=== PATIENT | female | born 1985 | race Caucasian/White ===

== ENCOUNTER → 2018-09-30 | Outpatient (CLI) | payer BC, OTHER ==
[2018-09-30 12:58] VITALS: BMI 39.4
== END ==
LOC: DBWHC3 10:17
PROVIDERS: ATTEND Nurse Practitioner Adult Health
DX: E66.9 Obesity, unspecified (principal); Z68.39 Body mass index [BMI] 39.0-39.9, adult
CPT/HCPCS: 97802

== ENCOUNTER → 2020-05-31 | Outpatient (CLI) | payer BC ==
[2020-05-31 16:39] VITALS: BP 114/82; PULSE 84; RESP 18; TEMP 98.6; BMI 39.3
--- NOTE | 2020-05-31 16:50 | P.HPBAR ---
Bariatric H&P - History & Physicial H&P Date: 05/31/20 History & Physicial: Visit/CC: initial visit Patient initial contact: Initial weight: Initial weight in pounds: Height: 5 ft 2 in Initial BMI: Last weight: Current weight: 97.522 kg Current weight in pounds: 215.00 Current BMI: 39.3 [place] body weight (based on NIH guidelines): 49.895 kg Excess body weight loss: The patient is a 34 year-old F who presents for Bariatric Assessment. DATE OF SERVICE: 05/31/2020 REASON FOR CONSULTATION: Initial bariatric evaluation HISTORY OF PRESENT ILLNESS: Yasmin Mclean is a 34-year-old female who comes with lifelong morbid obesity. She comes in looking into the sleeve gastrectomy. Her mother had the lap band. Both parents have troubles with their weight and obesity. Both of her parents have diabetes. She denies moderate gastroesophageal reflux disease. She denies family history of stomach or esophageal cancer. She already had the sleeve gastrectomy at the age of 24, 10 years ago. Her highest weight was 226 pounds. Her sleeve gastrectomy was done at [facility] where her last follow-up was 5 years. From surgery, her weight came down from 226 pounds to 160 pounds. She has re-gained almost all of her weight. "I was young and did my own thing." She is looking for additional surgery for weight loss. She presents to me for the first time in consultation. At height of 5 feet 2 inches, her ideal body weight is 135 pounds. Her highest weigh was 226 pounds, BMI 41.4. She comes in 215 pounds from her lowest weight of 160 pounds. She has gained 55 pounds in 5 years. Lifetime weight loss of 11 pounds. Lifetime excess percent weight loss reduced from 73% to 13%. Her body mass index is 39.3. She is 80 pounds overweight. PAST MEDICAL HISTORY: 1. Morbid obesity due to excess calories 2. Body mass index of initial 3. Diabetes type 2, non-insulin dependent PAST SURGICAL HISTORY: 1. Sleeve gastrectomy, 2010 HOME MEDICATIONS: Home Medications Medication Instructions Recorded Confirmed Etonogestrel/Ethinyl Estradiol 1 applic VAGINAL DIRECTED 05/30/20 05/31/20 [Nuvaring Vaginal Ring] Liraglutide [Saxenda] 1.8 ml SQ DAILY 05/30/20 05/31/20 Fluticasone Nasal [place] [Flonase 2 spr EA NOSTRIL DAILY PRN 05/31/20 05/31/20 Nasal [place]] valACYclovir [Valtrex] 1,000 mg PO DAILY PRN 05/31/20 05/31/20 ALLERGIES: Allergies Allergy/AdvReac Type Severity Reaction Status Date / Time No Known Allergies Allergy Verified 05/31/20 16:39 SOCIAL HISTORY: Past tobacco use. FAMILY HISTORY: No family history of ulcerative colitis disease or Crohn's disease. Family history of morbid obesity. No lupus in the family. No reports of stomach or esophageal cancer. REVIEW OF ORGAN SYSTEMS: CONSTITUTIONAL: At height of 5 feet 2 inches, her ideal body weight is 135 pounds. Her highest weigh was 226 pounds, BMI 41.4. Lowest weight of 160 pounds following sleeve gastrectomy. HEENT: Denies any active troubles with vision or hearing. ENDOCRINE: Has diabetes. No hypothyroidism. CARDIOVASCULAR: Past reports of palpitations or heart attacks or chest pain. RESPIRATORY: Denies daytime somnolence. Denies asthma. GASTROINTESTINAL: Denies any bright red blood per rectum. No diarrhea. No constipation. MUSCULOSKELETAL: Has lower back pain and joint pain. NEURO: No headaches. No seizure disorders. PSYCH: Denies depression. No suicidal ideation. RHEUMATOLOGIC: No lupus. No rheumatoid arthritis. HEMATOLOGIC: Denies any abnormal bleeding or bruising. No personal history of DVTs. SKIN: No rash. No skin cancer. PHYSICAL EXAM: VITAL SIGNS: Height 5 foot 2 inches, weight 215 pounds. BMI 39.3 Vital Signs Temp 98.6 F 05/31/20 16:36 Pulse 84 05/31/20 16:36 Resp 18 05/31/20 16:36 BP 114/82 05/31/20 16:36 Pulse Ox GENERAL: Well-developed in no acute distress. HEENT: No scleral icterus. Extraocular movements grossly intact. Hears conversational speech. No nasal drainage. NECK: Supple without lymphadenopathy. CHEST: Nonlabored respirations with equal bilateral excursions. CARDIOVASCULAR: Regular rate and regular rhythm. Distal 2+ pulses. ABDOMEN: Obese, soft, nontender, nondistended. MUSCULOSKELETAL: No clubbing, cyanosis. NEURO: No focal or lateralizing signs. Cranial nerves 2 through 12 grossly within normal limits. PSYCH: Appropriate affect. Alert and oriented to person, place and time. SKIN: Good skin turgor. Well perfused. ASSESSMENT: 1. Morbid obesity due to excess calories 2. Body mass index of initial 3. Diabetes type 2, non-insulin dependent 4. Family history of morbid obesity 5. Non-compliance to bariatric weight loss. 6. Weight gain following weight loss surgery. 7. Status post sleeve gastrectomy. PLAN: 1. She has weight gain following sleeve gastrectomy from non-compliance. However, sleeve gastrectomy complications including structural abnormalities will be evaluated. 2. She is looking into possible re-sleeve. Will need additional assessment with esophogram and upper endoscopy to sleeve pouch volume. 3. Recommend bariatric metabolic panel to evaluate for micro- including macronutrient deficiencies. 4. Dietary surveillance and counseling was reviewed. Increased protein intake over 65 grams daily advised. 5. Recommend bariatric dietitian with food diary journal. 6. Recommend medical risk assessment. 7. Psych assessment per insurance guidelines. 8. Recommend upper endoscopy. 9. Recommend 12-lead EKG. 10. Recommend esophagram 11. She is elevated risk for complications with prior gastric surgery. Thank you for this consultation. Past Medical History Past Medical History: No Reported History History of Any Multi-Drug Resistant Organisms: None Reported Past Surgical History: Bariatric Surgery Additional Past Surgical History / Comment(s): sleeve gastrectomy 2010 Past Anesthesia/Blood Transfusion Reactions: No Reported Reaction Past Psychological History: No Psychological Hx Reported Smoking Status: Former smoker Past Alcohol Use History: Occasional Additional Past Alcohol Use History / Comment(s): quit smoking 2008 Past Drug Use History: None Reported Surgical - Exam Vital Signs Temp Pulse Resp BP 98.6 F 84 18 114/82 05/31/20 16:36 05/31/20 16:36 05/31/20 16:36 05/31/20 16:36 Bariatric Checklist Checklist: Plan: Checklist: EGD: 1. Hiatal hernia: 2. H. Pylori: HgbA1c: Vitamin D: Smoking: Primary care physician referral: SONYA Patel Psychiatry clearance: Cardiology clearance: Sleep study: Diet journal: VTE risk score: VTE risk level: Rehab needs at discharge:
== END | disposition home or self-care (01) ==
LOC: BARWHC3 15:58
PROVIDERS: ATTEND Surgery Plastic and Reconstructive Surgery
DX: E66.01 Morbid (severe) obesity due to excess calories (principal); E11.9 Type 2 diabetes mellitus without complications; Z83.49 Family history of other endocrine, nutritional and metabolic diseases; Z99.89 Dependence on other enabling machines and devices; Z68.39 Body mass index [BMI] 39.0-39.9, adult
CPT/HCPCS: 99203

== ENCOUNTER → 2020-06-05 | Outpatient (CLI) | payer BC ==
[2020-06-05 09:52] LABS: HCT 44.6 % (34.0-46.0); HGB 14.7 gm/dL (11.4-16.0); MCH 30.1 pg (25.0-35.0); MCHC 33.1 g/dL (31.0-37.0); Mean Platelet Volume 7.1; Platelet Count 244 k/uL (150-450); RDW 12.2 % (11.5-15.5); WBC 8.3 k/uL (3.8-10.6)
[2020-06-05 17:44] LABS: % Iron Saturation 33.9 (12.00-45.00); African American GFR (CKD) 112.3 (60.0-200.0); Albumin 4.3 g/dL (3.80-4.90); Albumin/Globulin Ratio 1.95 (1.60-3.17); Anion Gap 14.3 mmol/L (4.00-12.00); BUN/Creat Ratio 17.5 Ratio (12.00-20.00); Carbon Dioxide 17.7 mmol/L (21.6-31.8); Chol/HDL Ratio 2.53; Globulin 2.2 g/dL (1.6-3.3); LDL Cholesterol,Calculated 83.2 mg/dL (0.0-131.0); Magnesium 1.9 mg/dL (1.5-2.4); Non-African American GFR(CKD) 96.9 (60.0-200.0); Phosphorus 3.9 mg/dL (2.4-5.1); Potassium 4.1 mmol/L (3.5-5.5); Total Bilirubin 0.5 mg/dL (0.3-1.2); Total Protein 6.5 g/dL (6.2-8.2); VLDL Calculation 23.8 mg/dL (5.00-40.00)
[2020-06-05 17:59] LABS: Hemoglobin A1C 4.9 % (4.0-6.0)
[2020-06-05 18:22] LABS: Folate, Serum 13.2 ng/mL
[2020-06-05 18:55] LABS: INR 0.96 (0.90-1.11); Partial Thromboplastin Time 27.9 sec (23.5-31.0); Prothrombin Time 10.4 sec (9.9-11.9)
[2020-06-06 13:08] LABS: Zinc, Serum 58 ug/dL (60-130)
[2020-06-07 07:57] LABS: Vitamin A 65 ug/dL (38-106)
[2020-06-07 08:04] LABS: Vit B1(Thiamine) 64 ug/L (38-122)
[2020-06-08 22:54] LABS: Selenium 120 mcg/L (63-160)
== END | disposition home or self-care (01) ==
LOC: LABWHC1 08:49
PROVIDERS: ATTEND Surgery Plastic and Reconstructive Surgery
DX: E66.01 Morbid (severe) obesity due to excess calories (principal); E89.1 Postprocedural hypoinsulinemia; D50.8 Other iron deficiency anemias; E44.0 Moderate protein-calorie malnutrition; E55.9 Vitamin D deficiency, unspecified; K74.1 Hepatic sclerosis; N19 Unspecified kidney failure; K50.90 Crohn's disease, unspecified, without complications
CPT/HCPCS: 36415; 80053; 80061; 82306; 82525; 82607; 82728; 82746; 83036; 83540; 83550; 83735; 83970; 84100; 84134; 84255; 84425; 84443; 84590; 84630; 85027; 85610; 85730; 93005

== ENCOUNTER → 2020-06-19 | Outpatient (CLI) | payer BC ==
--- NOTE | 2020-06-19 11:37 | FL ---
EXAMINATION TYPE: FL barium swallow DATE OF EXAM: 06/19/2020 CLINICAL INDICATION: 34-year-old female R13.10 dysphagia, R10.13 epigastric pain. Additional history of sleeve gastrectomy 10 years ago. COMPARISON: None Total Fluoroscopy Time: 2 minutes 21 seconds Total images: 47 FINDINGS: The swallowing mechanism is normal and hypopharyngeal anatomy is preserved. The cervical and thoracic portions have a normal course and caliber and normal motility. The mucosa i s normal and no persistent filling defect is encountered. No hiatal hernia is present. No gastroesop hageal reflux is identified. The proximal portion of the stomach is tortuous and appears to demonstrate a counterclockwise corkscr ew turn with a mild narrowing of the mid to distal aspect of the corkscrew. There is also only mild n arrowing of the mid portion of the stomach. IMPRESSION: 1. No hiatal hernia. Unremarkable appearance to the esophagus. 2. Tortuous proximal portion of the stomach (either variant anatomy or in part postsurgical change) d emonstrating a counterclockwise corkscrew turn with only very mild narrowing of the mid to distal asp ect of the corkscrew. Additional very mild narrowing of the midportion of the stomach. Images are marco ilable for review.
== END | disposition home or self-care (01) ==
LOC: RADUSWWP 09:10
PROVIDERS: ATTEND Surgery Plastic and Reconstructive Surgery
DX: R13.10 Dysphagia, unspecified (principal)
CPT/HCPCS: 74220

== ENCOUNTER 2020-06-28 09:53 | Day surgery (SDC) | payer BC ==
[2020-06-26 10:28] VITALS: BMI 38.9
--- NOTE | 2020-06-28 08:37 | P.GSHP ---
History of Present Illness H&P Date: 06/28/20 CHIEF COMPLAINT: GERD HISTORY OF PRESENT ILLNESS: The patient is a 34-year-old female who presents reports gastroesophageal reflux disease. Upper endoscopy was offered for further evaluation and management. PAST MEDICAL HISTORY: Please see list. PAST SURGICAL HISTORY: Please see list. MEDICATIONS: Please see list. ALLERGIES: Please see list. SOCIAL HISTORY: No illicit drug use FAMILY HISTORY: No reports of Crohn disease or ulcerative colitis. REVIEW OF ORGAN SYSTEMS: CONSTITUTIONAL: No reports of fevers or chills. GI: Denies any blood in stools or constipation. PHYSICAL EXAM: VITAL SIGNS: Stable GENERAL: Well-developed and pleasant in no acute distress. HEENT: No scleral icterus. Extraocular movements grossly intact. Moist buccal mucosa. NECK: Supple without lymphadenopathy. CHEST: Unlabored respirations. Equal bilateral excursions. CARDIOVASCULAR: Regular rate and rhythm. Distal 2+ pulses. ABDOMEN: Soft, nondistended. MUSCULOSKELETAL: No clubbing, cyanosis, or edema. ASSESSMENT: 1. Gastroesophageal reflux disease PLAN: 1. Recommend proceeding with an upper endoscopy Past Medical History Past Medical History: No Reported History History of Any Multi-Drug Resistant Organisms: None Reported Past Surgical History: Bariatric Surgery Additional Past Surgical History / Comment(s): sleeve gastrectomy 2010 Past Anesthesia/Blood Transfusion Reactions: No Reported Reaction Past Psychological History: No Psychological Hx Reported Smoking Status: Former smoker Past Alcohol Use History: Occasional Additional Past Alcohol Use History / Comment(s): quit smoking 2007 Past Drug Use History: None Reported - Past Family History Mother Family Medical History: No Reported History Medications and Allergies Home Medications Medication Instructions Recorded Confirmed Type Etonogestrel/Ethinyl Estradiol 1 applic VAGINAL DIRECTED 05/30/20 06/26/20 History [Nuvaring Vaginal Ring] Liraglutide [Saxenda] 1.8 ml SQ DAILY 05/30/20 06/26/20 History Fluticasone Nasal [place] [Flonase 2 spr EA NOSTRIL DAILY PRN 05/31/20 06/26/20 History Nasal [place]] valACYclovir [Valtrex] 1,000 mg PO DAILY PRN 05/31/20 06/26/20 History Allergies Allergy/AdvReac Type Severity Reaction Status Date / Time No Known Allergies Allergy Verified 06/26/20 10:25
[~2020-06-28 09:53] MED LIST: LACTATED RINGERS 1,000 ML IV SCH; LIDOCAINE 1% (10MG/ML) FOR IV START INTRADERMA PRN
[2020-06-28 10:54] VITALS: RESP 16; TEMP 98.1
[2020-06-28] MEDS ORDERED: PROPOFOL 10 MG/ML 20 ML VIAL IV ONE (11:24)
[2020-06-28 12:39] VITALS: BP 117/72; PULSE 82
--- NOTE | 2020-06-28 17:57 | P.PCN ---
Date of Procedure: 06/28/20 Description of Procedure: PREOPERATIVE DIAGNOSIS: Status post sleeve gastrectomy. Gastroesophageal reflux disease. Epigastric abdominal pain. POSTOPERATIVE DIAGNOSIS: Status post sleeve gastrectomy. Gastroesophageal reflux disease. Epigastric abdominal pain. Chronic superficial gastritis. Complications sleeve gastrectomy OPERATION: Esophagogastroduodenoscopy with cold forceps biopsies along the antrum. SURGEON: Vero Lo MD ANESTHESIA: MAC. INDICATIONS: The patient is a 34-year-old female who presents with a history of sleeve gastrectomy with complications. She is over 5 years out from her bariatric procedure. Benefits and risks of the procedure were described. Informed consent was obtained. DESCRIPTION: The patient was brought into the endoscopy suite and laid in the left lateral decubitus position. An Olympus gastroscope was passed along the posterior oropharynx down to the distal esophagus where the squamocolumnar junction was unremarkable . The stomach was entered where retained gastric cardia including stenosis at the angulus incisura and tortuous sleeve was identified. The tunnel of the sleeve was meandering. The sleeve reservoir was moderately large allowing easy retroflexion of the scope to view the lower esophageal valve. Chronic gastritis albeit mild was found along the antrum with cold biopsies obtained. The first through third portion of the duodenum was examined and unremarkable. The scope again had easily retroflexed along the antrum. The stomach was desufflated. The patient tolerated the procedure well. FINDINGS: No acute ulceration found along her sleeve. Severe corkscrewing of sleeve gastrectomy with retained gastric cardia Squamocolumnar junction at 37 cm from the incisors. Moderate large gastric reservoir with prior history of sleeve gastrectomy allowing easy retroflexion of the gastroscope to view the lower esophageal valve. No LA grade A erosive esophagitis. No active duodenitis. Chronic gastritis. RECOMMENDATIONS: Upper endoscopy as needed. May benefit from revision or conversion of her bariatric procedure Plan - Discharge Summary Discharge Rx Participant: No New Discharge Prescriptions: Continue Etonogestrel/Ethinyl Estradiol [Nuvaring Vaginal Ring] 1 applic VAGINAL DIRECTED Liraglutide [Saxenda] 1.8 ml SQ DAILY Fluticasone Nasal [place] [Flonase Nasal [place]] 2 spr EA NOSTRIL DAILY PRN PRN Reason: Allergy Symptoms valACYclovir [Valtrex] 1,000 mg PO DAILY PRN PRN Reason: Cold Sores Discharge Medication List Etonogestrel/Ethinyl [place]str[place] [Nuvaring Vaginal Ring] 1 applic VAGINAL DIRECTED 05/30/20 [History] Liraglutide [Saxenda] 1.8 ml SQ DAILY 05/30/20 [History] Fluticasone Nasal [place] [Flonase Nasal [place]] 2 spr EA NOSTRIL DAILY PRN 05/31/20 [History] valACYclovir [Valtrex] 1,000 mg PO DAILY PRN 05/31/20 [History] [facility] [facility] [place] [place] [facility] [place] [facility] (Please call and make your appointment, noone answered, voicemail.) Patient Instructions/Handouts: *Surgery [facility] - (Anesthesia) Endoscopy Discharge Instructions, Gastritis (DC), Upper Endoscopy (DC) Discharge Disposition: HOME SELF-CARE
== END 2020-06-28 12:45 | disposition home or self-care (01) ==
LOC: ORWHC2ENDO 09:53
PROVIDERS: ATTEND Surgery Plastic and Reconstructive Surgery
DX: K29.30 Chronic superficial gastritis without bleeding (principal); K95.89 Other complications of other bariatric procedure; K21.9 Gastro-esophageal reflux disease without esophagitis; Z98.84 Bariatric surgery status; Z79.3 Long term (current) use of hormonal contraceptives; Z79.899 Other long term (current) drug therapy; Z87.891 Personal history of nicotine dependence
CPT/HCPCS: 81025; 88305; 43239; J2704

== ENCOUNTER → 2020-07-12 | Outpatient (CLI) | payer BC ==
[2020-07-12 16:41] VITALS: BP 145/79; PULSE 77; RESP 18; TEMP 98.1; BMI 39.3
--- NOTE | 2020-07-12 17:13 | P.PN ---
Subjective Progress Note Date: 07/12/20 She has mechanical complication with sleeve. Needs revision. Correct Zinc. Objective - Vital Signs Vital signs: Vital Signs Temp 98.1 F 07/12/20 16:39 Pulse 77 07/12/20 16:39 Resp 18 07/12/20 16:39 BP 145/79 07/12/20 16:39 Pulse Ox Intake & Output 07/11/20 07/12/20 07/12/20 18:59 06:59 18:59 Weight 97.522 kg
== END ==
LOC: BARWHC3 16:26
PROVIDERS: ATTEND Surgery Plastic and Reconstructive Surgery
DX: E66.01 Morbid (severe) obesity due to excess calories (principal); Z68.39 Body mass index [BMI] 39.0-39.9, adult; Z98.84 Bariatric surgery status; Z87.891 Personal history of nicotine dependence
CPT/HCPCS: 99211

== ENCOUNTER 2023-09-09 13:14 | Inpatient (IN) | payer BC ==
[2023-09-09] MEDS ORDERED: CARBOPROST TROMETHAMINE 250 MCG/ML 1 ML AMP IM PRN (13:39)
[2023-09-09] MEDS ORDERED: miSOPROStoL 200 MCG TAB PO PRN (13:39)
[2023-09-09] MEDS ORDERED: METHYLERGONOVINE 0.2 MG/ML 1 ML AMP IM PRN (13:39)
[2023-09-09] MEDS ORDERED: TERBUTALINE 1 MG/ML VIAL SQ PRN (13:39)
[2023-09-09] MEDS ORDERED: TRANEXAMIC 1,000 MG/100ML-NACL 1,000 MG in EMPTY BAG 1 BAG IV PRN (13:39)
[2023-09-09] MEDS ORDERED: OXYTOCIN 10 UNIT/ML 1 ML VIAL IM PRN (13:39)
[2023-09-09] MEDS: LACTATED RINGERS 1,000 ML IV SCH (13:52)
[2023-09-09 14:03] LABS: Basophils # (A) 0.1 k/uL (0-0.2); Basophils % (A) 1 %; Eosinophils # (A) 0.1 k/uL (0-0.7); Eosinophils % (A) 1 %; HCT 41.8 % (34.0-46.0); HGB 13.8 gm/dL (11.4-16.0); Lymphocytes # (A) 2.3 k/uL (1.0-4.8); Lymphocytes % (A) 13 %; MCH 29.6 pg (25.0-35.0); MCHC 33.1 g/dL (31.0-37.0); MCV 89.3 fL (80.0-100.0); Mean Platelet Volume 8.4; Monocytes # (A) 0.5 k/uL (0-1.0); Monocytes % (A) 3 %; Neutrophils # (A) 15.4 k/uL (1.3-7.7); Neutrophils % (A) 83 %; Platelet Count 198 k/uL (150-450); RBC 4.68 m/uL (3.80-5.40); RDW 13.5 % (11.5-15.5); WBC 18.6 k/uL (3.8-10.6)
[2023-09-09 14:10] LABS: Appearance,Urine Cloudy (Clear); Bilirubin,Urine Negative (Negative); Blood,Urine Large (Negative); Color,Urine Yellow; Glucose,Urine (UA) Negative (Negative); Ketones,Urine Trace (Negative); Leukocyte Esterase,Urine Moderate (Negative); Mucus,Urine Occasional /hpf; Nitrite,Urine Negative (Negative); Protein,Urine 1+ (Negative); RBC,Urine >182 /hpf (0-5); Specific Gravity,Urine 1.019 (1.001-1.035); Squamous Epithelial Cell,Urine 4 /hpf (0-4); Urobilinogen,Urine <2.0 mg/dL (<2.0); WBC,Urine 22 /hpf (0-5)
[2023-09-09 14:14] LABS: INR 0.8 (<1.2); Partial Thromboplastin Time 22.2 sec (22.0-30.0); Prothrombin Time 9.4 sec (10.0-12.5)
[2023-09-09 14:33] LABS: ALT 21 U/L (4-34); AST 35 U/L (14-36); African American GFR (CKD) >90 (>60 ml/min/1.73 sqM); Blood Urea Nitrogen 12 mg/dL (7-17); LDH 300 U/L (120-246); Non-African American GFR(CKD) >90 (>60 ml/min/1.73 sqM); Uric Acid 5.2 mg/dL (3.7-7.4)
[2023-09-09 14:35] LABS: Creatinine,Urine Random 117.8 mg/dL; Protein/Creatinine Ratio,Urine 0.56
[2023-09-09] MEDS: LABETALOL 5 MG/ML VIAL MDV IVP STA (14:35)
--- NOTE | 2023-09-09 14:42 | P.HPOB ---
History of Present Illness H&P Date: 09/09/23 Chief Complaint: Contractions Ms. Mclean is a 37 year old at 39 weeks and 3 days with EDC of 5/4 based on 14 week US who presents to labor and delivery with painful, regular uterine contractions and is found to be in labor. Her has been complicated by the finding of a velamentous cord insertion, for which she has had non-stress tests for surveillance since 32 weeks that have all been reassuring. The fetus measured in the 69%ile for weight at 32 weeks on ultrasound. work-up: Blood type AB positive, antibody screen negative, rubella im mune, VDRL non-reactive, HBsAg negative, HIV negative, HCV Ab non-reactive, gonorrhea negative, chlamydia negative, 1 hour GTT within normal limits, GBS negative. s/p TDap 07/01. Past Medical History Past Medical History: No Reported History History of Any Multi-Drug Resistant Organisms: None Reported Past Surgical History: Bariatric Surgery Additional Past Surgical History / Comment(s): sleeve gastrectomy 2010 Past Anesthesia/Blood Transfusion Reactions: No Reported Reaction Smoking Status: Never smoker Medications and Allergies Home Medications Medication Instructions Recorded Confirmed Type Aspirin [Adult Low Dose Aspirin EC] 81 mg PO DAILY 09/09/23 09/09/23 History Vit No.179/Iron/Folic 1 each PO DAILY 09/09/23 09/09/23 History [ Tablet] Allergies Allergy/AdvReac Type Severity Reaction Status Date / Time No Known Allergies Allergy Verified 09/09/23 13:22 Exam Intake and Output 09/08/23 09/09/23 09/09/23 22:59 06:59 14:59 Other: Weight 117.027 kg Focused physical exam is performed. This is a healthy-appearing in no apparent distress. Breathing is non-labored. Abdomen is gravid and non-tender. Cervical exam is 5/100/-1 per OB RN. Extremities are non-tender and non- edematous. heart tones are Category I and tocometer is graphing contractions every 2-4 minutes. Results Result Diagrams: 09/09/23 13:48 09/09/23 13:48 Abnormal Lab Results - Last 24 Hours (Table) 09/09/23 09/09/23 09/09/23 Range/Units 13:39 13:48 13:48 WBC (3.8-10.6) k/uL Neutrophils # (1.3-7.7) k/uL PT 9.4 L (10.0-12.5) sec Lactate Dehydrogenase 300 H (120-246) U/L Urine Appearance Cloudy H (Clear) Urine Protein 1+ H (Negative) Urine Ketones Trace H (Negative) Urine Blood Large H (Negative) Ur Leukocyte Esterase Moderate H (Negative) Urine RBC >182 H (0-5) /hpf Urine WBC 22 H (0-5) /hpf Urine Mucus Occasional H (None) /hpf 09/09/23 Range/Units 13:48 WBC 18.6 H (3.8-10.6) k/uL Neutrophils # 15.4 H (1.3-7.7) k/uL PT (10.0-12.5) sec Lactate Dehydrogenase (120-246) U/L Urine Appearance (Clear) Urine Protein (Negative) Urine Ketones (Negative) Urine Blood (Negative) Ur Leukocyte Esterase (Negative) Urine RBC (0-5) /hpf Urine WBC (0-5) /hpf Urine Mucus (None) /hpf Assessment and Plan Assessment: 37 year old at 39 weeks and 3 days presenting in labor Plan: 1. Labor. Admit, NPO, expectant management, epidural prn. Continuous EFM and tocometer, close monitoring of patient. 2. Severe-range blood pressures on admission. s/p IV Labetalol 200mg x1. PIH labs pending. Will start Mag Sulfate if second antihypertensive push is needed. Anticipate vaginal delivery
[2023-09-09] MEDS ORDERED: fentaNYL (PF) 50 MCG/ML 5 ML AMP ONE (14:47)
[2023-09-09] MEDS ORDERED: ROPIVACAINE 5 MG/ML 30 ML VIAL ONE (14:47)
[2023-09-09] MEDS ORDERED: SODIUM CHLORIDE 0.9% 250 ML BAG ONE (14:47)
[2023-09-09] MEDS: OXYTOCIN 30 UNITS/500 ML NS 30 UNIT in SALINE 1 500ML.BAG IV SCH (17:27)
[2023-09-10] MEDS: LIDOCAINE 0.5% (PF) 5 MG/ML (50 ML SDV) SQ PRN (00:57)
[2023-09-10] MEDS ORDERED: HYDROcodone/APAP 7.5-325MG 1 EACH TAB PO PRN (01:19)
[2023-09-10] MEDS ORDERED: diphenhydrAMINE 50 MG CAP PO PRN (01:19)
[2023-09-10] MEDS ORDERED: HYDROcodone/APAP 5-325MG 1 EACH TAB PO PRN (01:19)
[2023-09-10] MEDS ORDERED: diphenhydrAMINE 25 MG CAP PO PRN (01:19)
[2023-09-10] MEDS ORDERED: LANOLIN CREAM 1 GM TUBE TOPICAL PRN (01:19)
[2023-09-10] MEDS ORDERED: ZOLPIDEM 5 MG TAB PO PRN (01:19)
[2023-09-10] MEDS ORDERED: diphenhydrAMINE 50 MG/ML 1 ML VIAL IVP PRN ×2 (01:19)
[2023-09-10] MEDS ORDERED: HYDROCORTISONE 2.5% RECTAL CREAM 30 GM TUBE RECTAL PRN (01:19)
[2023-09-10] MEDS ORDERED: BENZOCAINE/MENTHOL SPRAY 1 GM/SPRAY AEROSOL TOPICAL PRN (01:19)
[2023-09-10] MEDS ORDERED: SIMETHICONE 80 MG CHEWABLE PO PRN (01:19)
--- NOTE | 2023-09-10 01:22 | P.PROBDLV ---
Vaginal Delivery Note - . Vaginal Delivery Note: Patient is a 37-year-old 1 para 0 admitted at 39-3/7 weeks as established by good dating parameters. She is admitted in early active labor with initial elevated blood pressures but negative laboratory workup constituting a diagnosis of preeclampsia without severe features. She did require treatment of blood pressures with labetalol at admission and has not required further treatment. On admission, all signs are reassuring with a category 1 heart rate tracing. She is admitted for active management of labor and underwent artificial rupture of membranes. She made progress to the active phase and had an epidural catheter placed for analgesia. She continued to make steady progress through the active phase of labor and ultimately progressed to complete or after she pushed over the course of just over an hour to a normal spontaneous vaginal delivery of a viable 7 pound 6 ounce baby boy with Apgars of 8 at 1 minute and 9 at 5 minutes delivered in the direct occiput anterior position. The placenta was delivered spontaneously, intact, and vanessa sly normal with a grossly normal, marginally inserted and velamentously inserted three-vessel cord. There was a second-degree midline perineal laceration which was repaired in standard fashion using 3-0 chromic catgut without difficulty. She did have some initial atony following delivery which resolved with clearance of the clots from the lower uterine segment. Estimated blood loss for the case was approximately 450 mL. There were no complications. All sponge, instrument, and needle counts were correct. Both mother and are resting comfortably in recovery though the infant was taken to the special care nursery secondary to some retractions and mild difficulty with breathing.
[2023-09-10] MEDS ORDERED: OXYTOCIN 30 UNITS/500 ML NS 30 UNIT in SALINE 1 500ML.BAG IV SCH (01:30)
[2023-09-10] MEDS: IBUPROFEN 600 MG TAB PO PRN (01:48)
[2023-09-10] MEDS: ACETAMINOPHEN TAB 325 MG TAB PO PRN (05:14)
[2023-09-10] MEDS: SENNOSIDES-DOCUSATE SODIUM 1 EACH TAB PO SCH (08:11)
[2023-09-10] MEDS: LABETALOL 200 MG TAB PO SCH (08:12)
[2023-09-11 07:57] LABS: Basophils # (A) 0.1 k/uL (0-0.2); Basophils % (A) 0 %; Eosinophils # (A) 0.1 k/uL (0-0.7); Eosinophils % (A) 1 %; HCT 28.7 % (34.0-46.0); Lymphocytes # (A) 4.9 k/uL (1.0-4.8); Lymphocytes % (A) 30 %; MCH 29.2 pg (25.0-35.0); MCV 91.3 fL (80.0-100.0); Mean Platelet Volume 7.8; Monocytes # (A) 0.6 k/uL (0-1.0); Monocytes % (A) 4 %; Neutrophils # (A) 10.6 k/uL (1.3-7.7); Neutrophils % (A) 64 %; Platelet Count 159 k/uL (150-450); RBC 3.15 m/uL (3.80-5.40); RDW 13.8 % (11.5-15.5); WBC 16.5 k/uL (3.8-10.6)
[2023-09-11 07:58] LABS: HGB 9.2 gm/dL (11.4-16.0)
--- NOTE | 2023-09-11 08:32 | P.PNOBGVD ---
Subjective - Subjective Principal diagnosis: s/p normal spontaneous vaginal delivery Interval history: The patient is doing well this morning and had no acute events overnight. She has no complaints this morning. She reports minimal lochia, passing flatus, voiding without difficulty, ambulating, and eating/drinking without nausea or vomiting. She is her infant without difficulty. She denies headache, visual disturbances, and RUQ pain. She denies chest pain, shortness of breathing, fevers, or chills overnight. She denies pain or swelling in the legs. Patient reports: Reports appetite normal, Reports voiding normally, Reports pain well controlled, Reports ambulating normally : doing well, nursing well, other (in nursery for IV abx) Objective - Latest Vital Signs Latest vital signs: Vital Signs Temp Pulse Resp BP Pulse Ox 09/11/23 03:09 80 151/86 99 09/11/23 00:00 15 09/10/23 23:38 97.9 F 86 15 101/69 97 09/10/23 20:00 82 16 112/68 09/10/23 16:00 98.5 F 89 16 106/69 09/10/23 15:43 16 Intake and Output 09/10/23 09/11/23 09/11/23 22:59 06:59 14:59 Intake Total 960 Balance 960 Intake: Oral 960 Other: # Voids 2 2 - Exam Extremities: Present: normal Abdomen: Present: normal appearance, soft Uterus: Present: normal, firm - Labs Labs: Abnormal Lab Results - Last 24 Hours (Table) 09/11/23 Range/Units 07:15 WBC 16.5 H (3.8-10.6) k/uL RBC 3.15 L (3.80-5.40) m/uL Hgb 9.2 L D (11.4-16.0) gm/dL Hct 28.7 L (34.0-46.0) % Neutrophils # 10.6 H (1.3-7.7) k/uL Lymphocytes # 4.9 H (1.0-4.8) k/uL Assessment and Plan Assessment: 37 year old now PPD#1 s/p complicated by new-onset pre-eclampsia without severe features Plan: 1. . Patient meeting all milestones appropriately. 2. Pre-eclampsia without severe features. Now on Labetalol 200mg BID. Most recent BP 150s/80s. Normotensive overnight. Continue to monitor. 3. Viable male . In nursery receiving IV antibiotics. Will need circumcision prior to discharge. Dispo: Anticipate discharge home tomorrow. Continue to monitor BPs.
[2023-09-12 08:58] VITALS: BP 131/76; PULSE 89; RESP 16; TEMP 98
--- NOTE | 2023-09-12 11:48 | P.DS ---
Providers Date of admission: 09/09/23 13:30 Expected date of discharge: 09/12/23 Attending physician: Maryse Reyna MD Primary care physician: Stated None Hospital Course: Ms. Mclean is a 37 year old now PPD#2 s/p normal spontaneous vaginal delivery with pitocin augmentation complicated by new-onset pre-eclampsia without severe features. The patient is doing well this morning and had no acute events overnight. Blood pressures have been normotensive on Labetalol 200mg BID. The patient denies headache, visual disturbances, and RUQ pain. She has no complaints this morning. She reports minimal lochia, passing flatus, voiding without difficulty, ambulating, and eating/drinking without nausea or vomiting. Infant doing well in the nursery, s/p circumcision. She denies chest pain, shortness of breathing, fevers, or chills overnight. She denies pain or swelling in the legs. restrictions are reviewed with the patient including pelvic rest for 6 weeks. The patient is encouraged to call the office if she experiences any heavy bleeding, foul-smelling discharge, breast complaints, or any if she has any other concerns. She will follow up in the office with in 1 weeks for blood pressure check. She will go home with a prescription for Labetaol as well as Motrin and Tylenol as needed for pain. All questions are answered. Assessment: 37 year old PPD#2 s/p complicated by preE without severe features Patient Condition at Discharge: Good Plan - Discharge Summary Discharge Rx Participant: No New Discharge Prescriptions: New Ibuprofen [Motrin] 600 mg PO Q6HR PRN #30 tab PRN Reason: Mild Pain (Scale 1 To 3) Labetalol [Trandate] 200 mg PO BID #60 tablet Acetaminophen Tab [Tylenol] 650 mg PO Q6H PRN #30 tab PRN Reason: Mild Pain (Scale 1 To 3) No Action Vit No.179/Iron/Folic [ Tablet] 1 each PO DAILY Aspirin [Adult Low Dose Aspirin EC] 81 mg PO DAILY Discharge Medication List Aspirin [Adult Low Dose Aspirin EC] 81 mg PO DAILY 09/09/23 [History] Vit No.179/Iron/Folic [ Tablet] 1 each PO DAILY 09/09/23 [History] Acetaminophen Tab [Tylenol] 650 mg PO Q6H PRN #30 tab 09/12/23 [Rx] Ibuprofen [Motrin] 600 mg PO Q6HR PRN #30 tab 09/12/23 [Rx] Labetalol [Trandate] 200 mg PO BID #60 tablet 09/12/23 [Rx] Follow up Appointment(s)/Referral(s): Maryse Reyna MD [STAFF PHYSICIAN] - 1 Week (blood pressure check, call to schedule) Activity/Diet/Wound Care/Special Instructions: Instructions 1. Do not begin any exercise program for 3 weeks. 2. Do not resume sexual relations for 6 weeks or longer if uncomfortable. 3. You may take tub baths or showers at any time. 4. You may use tampons if desired after 6 weeks. 5. Keep any areas repaired with stitches clean and dry. 6. If you are not nursing, wear a good fitting, supportive bra during the day and limit fluid intake for at least 1 week to prevent breast engorgement. 7. Call the office, , within the next week to make appointment for your 6 week checkup if it has not already been made. 8. Report any of the following occurrences to the doctor promptly: a. Heavy, excessive bleeding b. Chills, fever c. Burning or frequency of urination d. Pain or redness and breasts if nursing e. Increasing pain or swelling of vulva (stitches). In addition to the above instructions, the following additional should be followed: 1. No heavy lifting or straining (exercising) until after 6 week checkup. 2. Keep abdominal incision clean and dry: You may wear a dressing if more comfortable. 3. Make office appointment for 2 weeks after delivery date.
== END 2023-09-12 12:26 | disposition home or self-care (01) | DRG 807 ==
LOC: FBPOP 13:14 → 4FBP 13:30
PROVIDERS: ADMIT Obstetrics & Gynecology; ATTEND Obstetrics & Gynecology
PROC: 10E0XZZ Delivery of Products of Conception, External Approach (ICD-10-PCS; principal; 2023-09-10)
PROC: 0KQM0ZZ Repair Perineum Muscle, Open Approach (ICD-10-PCS; 2023-09-10)
PROC: 10907ZC Drainage of Amniotic Fluid, Therapeutic from Products of Conception, Via Natural or Artificial Opening (ICD-10-PCS; 2023-09-10)
DX: O14.04 Mild to moderate pre-eclampsia, complicating childbirth (principal); Z37.0 Single live birth; O70.1 Second degree perineal laceration during delivery; O99.844 Bariatric surgery status complicating childbirth; O43.123 Velamentous insertion of umbilical cord, third trimester; Z3A.39 39 weeks gestation of pregnancy; Z79.82 Long term (current) use of aspirin
CPT/HCPCS: 59025; 81001; 82565; 82570; 83615; 84156; 84450; 84460; 84520; 84550; 85025; 85384; 85610; 85730; 86850; 86900; 86901; 88307; 99213

== ENCOUNTER 2023-09-14 22:05 | Emergency (ER) | payer BC ==
[2023-09-14 22:39] VITALS: RESP 18
--- NOTE | 2023-09-14 23:13 | ED ---
Headache HPI - General Chief Complaint: Headache Stated Complaint: Headache, Dehydration Time Seen by Provider: 09/14/23 23:12 Source: RN notes reviewed, old records reviewed Mode of arrival: ambulatory Limitations: no limitations - History of Present Illness Initial Comments: This is a 37-year-old female to the ER presenting with headache today no trauma no fevers. No neurological complaints. Patient has 2 days of vaginal delivery with headache. Patient to get epidural injection. Medical history takes no medications first delivery first baby vaginal delivery full-term MD Complaint: headache, other (Post epidural headache) -: days(s) Onset Description: gradual Location: diffuse Severity: moderate Severity scale (1-10): 6 Quality: throbbing, pulsatile, sharp Consistency: constant Improves With: nothing Worsens With: none Associated Symptoms: nausea Other Symptoms: other (0) Treatments Prior to Arrival: none - Related Data Home Medications Medication Instructions Recorded Confirmed Aspirin [Adult Low Dose Aspirin EC] 81 mg PO DAILY 09/09/23 09/09/23 Vit No.179/Iron/Folic 1 each PO DAILY 09/09/23 09/09/23 [ Tablet] Previous Rx's Medication Instructions Recorded Acetaminophen Tab [Tylenol] 650 mg PO Q6H PRN #30 tab 09/12/23 Ibuprofen [Motrin] 600 mg PO Q6HR PRN #30 tab 09/12/23 Labetalol [Trandate] 200 mg PO BID #60 tablet 09/12/23 Allergies Allergy/AdvReac Type Severity Reaction Status Date / Time No Known Allergies Allergy Verified 09/14/23 22:15 Review of Systems ROS Statement: Those systems with pertinent positive or pertinent negative responses have been documented in the HPI. ROS Other: All systems not noted in ROS Statement are negative. Past Medical History Past Medical History: Hypertension History of Any Multi-Drug Resistant Organisms: None Reported Past Surgical History: Bariatric Surgery Additional Past Surgical History / Comment(s): sleeve gastrectomy 2010 Past Anesthesia/Blood Transfusion Reactions: No Reported Reaction Past Psychological History: No Psychological Hx Reported Smoking Status: Never smoker Past Alcohol Use History: Occasional Past Drug Use History: None Reported General Exam Limitations: no limitations General appearance: alert, in no apparent distress Head exam: Present: atraumatic, normocephalic, normal inspection Eye exam: Present: normal appearance, PERRL, EOMI. Absent: scleral icterus, conjunctival injection, periorbital swelling ENT exam: Present: normal exam, mucous membranes moist Neck exam: Present: normal inspection. Absent: tenderness, meningismus, lymphadenopathy Respiratory exam: Present: normal lung sounds bilaterally. Absent: respiratory distress, wheezes, rales, rhonchi, stridor Cardiovascular Exam: Present: regular rate, normal rhythm, normal heart sounds. Absent: systolic murmur, diastolic murmur, rubs, gallop, clicks GI/Abdominal exam: Present: soft, normal bowel sounds. Absent: distended, tenderness, guarding, rebound, rigid Extremities exam: Present: normal inspection, full ROM, normal capillary refill. Absent: tenderness, pedal edema, joint swelling, calf tenderness Back exam: Present: normal inspection Neurological exam: Present: alert, oriented X3, CN II-XII intact Psychiatric exam: Present: normal affect, normal mood Skin exam: Present: warm, dry, intact, normal color. Absent: rash Course Vital Signs 09/14/23 09/15/23 09/15/23 22:14 03:00 03:16 Temperature 98.3 F 97.9 F Pulse Rate 72 71 88 Respiratory 18 18 18 Rate Blood Pressure 155/88 147/93 144/82 O2 Sat by Pulse 98 99 97 Oximetry - Reevaluation(s) Reevaluation #1: 09/14/23 23:34 Records reviewed Reevaluation #2: 09/14/23 23:34 Patient symptoms are improved mildly Reevaluation #3: 09/14/23 23:34 Patient informed of results questions answered Reevaluation #4: Was pt. sent in by a medical professional or institution (, PA, MANAGER ROOM, urgent care, hospital, or fpc...) When possible be specific @ -no Did you speak to anyone other than the patient for history (EMS, parent, family, police, friend...)? What history was obtained from this source @ -no Did you review nursing and triage notes (agree or disagree)? Why? @ -agree Are old charts reviewed (outside hosp., previous admission, EMS record, old EKG, old radiological studies, urgent care reports/EKG's, fpc records)? Report findings @ -yes Differential Diagnosis (chest pain, altered mental status, abdominal pain women, abdominal pain men, vaginal bleeding, weakness, fever, dyspnea, syncope, headache, dizziness, GI bleed, back pain, seizure, CVA, palpatations, mental health, musculoskeletal)? @ -prior EKG interpreted by me (3pts min.). @ -no X-rays interpreted by me (1pt min.). @ -no CT interpreted by me (1pt min.). @ -no U/S interpreted by me (1pt. min.). @ -no What testing was considered but not performed or refused? (CT, X-rays, U/S, labs)? Why? @ -none What meds were considered but not given or refused? Why? @ -none Did you discuss the management of the patient with other professionals (professionals i.e. DrSanto, PA, MANAGER ROOM, lab, RT, psych nurse, social media content manager, adult daycare coordinator, teacher, attendance officer, rn case management)? Give summary @ -no Was smoking cessation discussed for >3mins.? @ -no Was critical care preformed (if so, how long)? @ -no Were there social determinants of health that impacted care today? How? (Homelessness, low income, unemployed, alcoholism, drug addiction, transportation, low edu. Level, literacy, decrease access to med. care, long term, rehab)? @ -none Was there de-escalation of care discussed even if they declined (Discuss DNR or withdrawal of care, Hospice)? DNR status @ -no What co-morbidities impacted this encounter? (DM, HTN, Smoking, COPD, CAD, Cancer, CVA, ARF, Chemo, Hep., AIDS, mental health diagnosis, sleep apnea, mo rbid obesity)? @ -none Was patient admitted / discharged? Hospital course, mention meds given and r oute, prescriptions, significant lab abnormalities, going to OR and other pertinent info. @ - 37 female to ER for evaluation, patient presents today for evaluation regards to headache spinal headache resolved here in the ER, patient feels well and can be discharged home Discharge Undiagnosed new problem with uncertain prognosis? @ -no Drug Therapy requiring intensive monitoring for toxicity (Heparin, Nitro, Insulin, Cardizem)? @ -no Were any procedures done? @ -no Diagnosis/symptom? @ -Spinal headache Acute, or Chronic, or Acute on Chronic? @ -Acute Uncomplicated (without systemic symptoms) or Complicated (systemic symptoms)? @ -Complicated Side effects of treatment? @ -no Exacerbation, Progression, or Severe Exacerbation? @ -exacerbation Poses a threat to life or bodily function? How? (Chest pain, [place], [place], pneumonia, PE, COPD, DKA, ARF, appy, cholecystitis, CVA, Diverticulitis, Homicidal, Suicidal, threat to staff... and all critical care pts) @ -yes severe headache Reevaluation #5: Differential Headache: Migraine, tension, cluster, carbon monoxide, central venous thrombosis, pension karma temporal arteritis, acute closure glaucoma, intercranial hemorrhage, mastoiditis, sinusitis, head injury, this is not meant to be an all-inclusive list. Medical Decision Making - Medical Decision Making 37 female to ER for evaluation, patient presents today for evaluation regards to headache spinal headache resolved here in the ER, patient feels well and can be discharged home - Lab Data Result diagrams: 09/15/23 01:42 09/15/23 01:42 Lab Results 09/15/23 09/15/23 09/15/23 Range/Units 01:42 01:42 01:42 WBC 9.9 (3.8-10.6) k/uL RBC 3.20 L (3.80-5.40) m/uL Hgb 9.9 L (11.4-16.0) gm/dL Hct 28.4 L (34.0-46.0) % MCV 88.6 (80.0-100.0) fL MCH 30.8 (25.0-35.0) pg MCHC 34.8 (31.0-37.0) g/dL RDW 14.2 (11.5-15.5) % Plt Count 210 (150-450) k/uL MPV 7.8 Neutrophils % 63 % Lymphocytes % 28 % Monocytes % 4 % Eosinophils % 2 % Basophils % 0 % Neutrophils # 6.3 (1.3-7.7) k/uL Lymphocytes # 2.7 (1.0-4.8) k/uL Monocytes # 0.4 (0-1.0) k/uL Eosinophils # 0.2 (0-0.7) k/uL Basophils # 0.0 (0-0.2) k/uL PT 9.5 L (10.0-12.5) sec INR 0.8 (<1.2) APTT 22.3 (22.0-30.0) sec Sodium 137 (137-145) mmol/L Potassium 4.1 (3.5-5.1) mmol/L Chloride 110 H (98-107) mmol/L Carbon Dioxide 22 (22-30) mmol/L Anion Gap 5 mmol/L BUN 10 (7-17) mg/dL Creatinine 0.72 (0.52-1.04) mg/dL Est GFR (CKD-EPI)AfAm >90 (>60 ml/min/1.73 sqM) Est GFR (CKD-EPI)NonAf >90 (>60 ml/min/1.73 sqM) Glucose 89 (74-99) mg/dL Calcium 8.3 L (8.4-10.2) mg/dL Phosphorus 3.8 (2.5-4.5) mg/dL Magnesium 2.0 (1.6-2.3) mg/dL Total Bilirubin 0.3 (0.2-1.3) mg/dL AST 94 H (14-36) U/L ALT 188 H (4-34) U/L Alkaline Phosphatase 119 (38-126) U/L Total Protein 5.3 L (6.3-8.2) g/dL Albumin 2.8 L (3.5-5.0) g/dL Urine Color Urine Appearance (Clear) Urine pH (5.0-8.0) Ur Specific [place] (1.001-1.035) Urine Protein (Negative) Urine Glucose (UA) (Negative) Urine Ketones (Negative) Urine Blood (Negative) Urine Nitrite (Negative) Urine Bilirubin (Negative) Urine Urobilinogen (<2.0) mg/dL Ur Leukocyte Esterase (Negative) Urine RBC (0-5) /hpf Urine WBC (0-5) /hpf Ur Squamous Epith Cells (0-4) /hpf Amorphous Sediment (None) /hpf Urine Bacteria (None) /hpf Urine Mucus (None) /hpf 09/15/23 Range/Units 02:45 WBC (3.8-10.6) k/uL RBC (3.80-5.40) m/uL Hgb (11.4-16.0) gm/dL Hct (34.0-46.0) % MCV (80.0-100.0) fL MCH (25.0-35.0) pg MCHC (31.0-37.0) g/dL RDW (11.5-15.5) % Plt Count (150-450) k/uL MPV Neutrophils % % Lymphocytes % % Monocytes % % Eosinophils % % Basophils % % Neutrophils # (1.3-7.7) k/uL Lymphocytes # (1.0-4.8) k/uL Monocytes # (0-1.0) k/uL Eosinophils # (0-0.7) k/uL Basophils # (0-0.2) k/uL PT (10.0-12.5) sec INR (<1.2) APTT (22.0-30.0) sec Sodium (137-145) mmol/L Potassium (3.5-5.1) mmol/L Chloride (98-107) mmol/L Carbon Dioxide (22-30) mmol/L Anion Gap mmol/L BUN (7-17) mg/dL Creatinine (0.52-1.04) mg/dL Est GFR (CKD-EPI)AfAm (>60 ml/min/1.73 sqM) Est GFR (CKD-EPI)NonAf (>60 ml/min/1.73 sqM) Glucose (74-99) mg/dL Calcium (8.4-10.2) mg/dL Phosphorus (2.5-4.5) mg/dL Magnesium (1.6-2.3) mg/dL Total Bilirubin (0.2-1.3) mg/dL AST (14-36) U/L ALT (4-34) U/L Alkaline Phosphatase (38-126) U/L Total Protein (6.3-8.2) g/dL Albumin (3.5-5.0) g/dL Urine Color Colorless Urine Appearance Cloudy H (Clear) Urine pH 6.5 (5.0-8.0) Ur Specific [place] 1.016 (1.001-1.035) Urine Protein Trace H (Negative) Urine Glucose (UA) Negative (Negative) Urine Ketones 2+ H (Negative) Urine Blood Moderate H (Negative) Urine Nitrite Negative (Negative) Urine Bilirubin Negative (Negative) Urine Urobilinogen <2.0 (<2.0) mg/dL Ur Leukocyte Esterase Large H (Negative) Urine RBC 19 H (0-5) /hpf Urine WBC >182 H (0-5) /hpf Ur Squamous Epith Cells 7 H (0-4) /hpf Amorphous Sediment Rare H (None) /hpf Urine Bacteria Occasional H (None) /hpf Urine Mucus Occasional H (None) /hpf Disposition Clinical Impression: Headache, Spinal headache Disposition: HOME SELF-CARE Condition: Good Instructions (If sedation given, give patient instructions): Acute Headache (ED) Is patient prescribed a controlled substance at d/c from ED?: No Referrals: Bayron Harp MD [Primary Care Provider] - 1-2 days
[2023-09-14] MEDS: diphenhydrAMINE 50 MG/ML 1 ML VIAL IVP STA (23:53)
[2023-09-14] MEDS: KETOROLAC 15 MG/ML 1 ML VIAL IVP STA (23:54)
[2023-09-14] MEDS: PROCHLORPERAZINE INJ 10 MG/2 ML VIAL IVP STA (23:55)
[2023-09-14] MEDS: SODIUM CHLORIDE 0.9% 1,000 ML IV STA (23:58)
[2023-09-15] MEDS: HYDROmorphone 1 MG/ML 1 ML SYRINGE IVP STA (00:01)
[2023-09-15] MEDS: ACETAMINOPHEN IV (For NPO) 1,000 MG in EMPTY BAG 1 BAG IVPB STA (00:05)
[2023-09-15] MEDS: CAFFEINE-SODIUM BENZOATE 1,000 MG in SODIUM CHLORIDE 0.9% 1,000 ML IVPB ONE (00:49)
[2023-09-15 02:09] LABS: INR 0.8 (<1.2); Partial Thromboplastin Time 22.3 sec (22.0-30.0); Prothrombin Time 9.5 sec (10.0-12.5)
[2023-09-15 02:11] LABS: ALT 188 U/L (4-34); AST 94 U/L (14-36); African American GFR (CKD) >90 (>60 ml/min/1.73 sqM); Albumin 2.8 g/dL (3.5-5.0); Alkaline Phosphatase 119 U/L (38-126); Anion Gap 5 mmol/L; Blood Urea Nitrogen 10 mg/dL (7-17); Calcium 8.3 mg/dL (8.4-10.2); Carbon Dioxide 22 mmol/L (22-30); Chloride 110 mmol/L (98-107); Glucose 89 mg/dL (74-99); Non-African American GFR(CKD) >90 (>60 ml/min/1.73 sqM); Phosphorus 3.8 mg/dL (2.5-4.5); Potassium 4.1 mmol/L (3.5-5.1); Sodium 137 mmol/L (137-145); Total Bilirubin 0.3 mg/dL (0.2-1.3); Total Protein 5.3 g/dL (6.3-8.2)
[2023-09-15 02:13] LABS: Basophils % (A) 0 %; Eosinophils # (A) 0.2 k/uL (0-0.7); Eosinophils % (A) 2 %; HCT 28.4 % (34.0-46.0); HGB 9.9 gm/dL (11.4-16.0); Lymphocytes # (A) 2.7 k/uL (1.0-4.8); Lymphocytes % (A) 28 %; MCH 30.8 pg (25.0-35.0); MCHC 34.8 g/dL (31.0-37.0); MCV 88.6 fL (80.0-100.0); Mean Platelet Volume 7.8; Monocytes # (A) 0.4 k/uL (0-1.0); Monocytes % (A) 4 %; Neutrophils # (A) 6.3 k/uL (1.3-7.7); Neutrophils % (A) 63 %; Platelet Count 210 k/uL (150-450); RDW 14.2 % (11.5-15.5); WBC 9.9 k/uL (3.8-10.6)
[2023-09-15 03:13] LABS: Amorphous Sediment,Urine Rare /hpf; Appearance,Urine Cloudy (Clear); Bacteria,Urine Occasional /hpf; Bilirubin,Urine Negative (Negative); Blood,Urine Moderate (Negative); Color,Urine Colorless; Glucose,Urine (UA) Negative (Negative); Ketones,Urine 2+ (Negative); Leukocyte Esterase,Urine Large (Negative); Mucus,Urine Occasional /hpf; Nitrite,Urine Negative (Negative); PH, Urine 6.5 (5.0-8.0); Protein,Urine Trace (Negative); RBC,Urine 19 /hpf (0-5); Specific Gravity,Urine 1.016 (1.001-1.035); Squamous Epithelial Cell,Urine 7 /hpf (0-4); Urobilinogen,Urine <2.0 mg/dL (<2.0); WBC,Urine >182 /hpf (0-5)
[2023-09-15 03:21] VITALS: BP 144/82; PULSE 88; TEMP 97.9
== END 2023-09-15 03:17 | disposition home or self-care (01) ==
LOC: EC 22:05
DX: G95.89 Other specified diseases of spinal cord (principal)
CPT/HCPCS: 36415; 80053; 83735; 84100; 85025; 85610; 85730; 81001; 99284; 96365; 96366; 96368; 96375 ×3; 96361; J1200; J0780; J0131; J1885

== ENCOUNTER → 2023-09-19 | Outpatient (CLI) | payer BC ==
[2023-09-19 18:34] LABS: Appearance,Urine Cloudy (Clear); Bilirubin,Urine Negative (Negative); Blood,Urine Large (Negative); Color,Urine Dark Yellow (Yellow); Ketones,Urine Trace (Negative); Nitrite,Urine Negative (Negative); Specific Gravity,Urine 1.023 (1.001-1.030)
[2023-09-19 20:06] LABS: Basophils # (A) 0.07 X 10*3/uL (0.00-0.10); Basophils % (A) 0.7 %; Eosinophils # (A) 0.18 X 10*3/uL (0.04-0.35); Eosinophils % (A) 1.7 %; Lymphocytes # (A) 2.61 X 10*3/uL (0.90-5.00); Lymphocytes % (A) 24.3 %; MCH 28.9 pg (27.0-32.0); MCHC 31.4 g/dL (32.0-37.0); MCV 91.9 FL (80.0-97.0); Mean Platelet Volume 9.6 FL (9.5-12.2); Monocytes # (A) 0.52 X 10*3/uL (0.20-1.00); Monocytes % (A) 4.8 %; NRBC Per 100 WBC 0 X 10*3/uL (0.00-0.01); Neutrophils % (A) 67.9 %; Platelet Count 251 X 10*3/uL (140-440); RBC 3.81 X 10*6/uL (4.10-5.20); RBC Morphology Normal (Normal); RDW 13.8 % (11.5-14.5); WBC 10.74 X 10*3/uL (4.50-10.00)
[2023-09-19 20:15] LABS: Bacteria,Urine Trace (None Seen)
[2023-09-19 21:11] LABS: % Iron Saturation 10.02 (12.00-45.00); ALT 105 U/L (8-44); AST 37 U/L (13-35); Albumin 3.9 g/dL (3.8-4.9); Alkaline Phosphatase 109 U/L (41-126); Blood Urea Nitrogen 9.2 mg/dL (9.0-27.0); Calcium 8.9 mg/dL (8.7-10.3); Carbon Dioxide 19.8 mmol/L (21.6-31.8); Chloride 108 mmol/L (96-109); Ferritin 22.8 ng/mL (10.0-291.0); Globulin 2.3 g/dL (1.6-3.3); Glucose 91 mg/dL (70-110); Iron 55 UG/DL (50-170); Potassium 4.6 mmol/L (3.5-5.5); Sodium 141 mmol/L (135-145); Total Bilirubin <0.2 mg/dL (0.3-1.2); Total Iron Binding Capacity 549 UG/DL (228-460); Total Protein 6.2 g/dL (6.2-8.2)
== END | disposition home or self-care (01) ==
LOC: LABWHC1 12:03
PROVIDERS: ATTEND Internal Medicine
DX: D64.9 Anemia, unspecified (principal); E83.51 Hypocalcemia; R82.90 Unspecified abnormal findings in urine; R60.0 Localized edema
CPT/HCPCS: 36415; 80053; 81001; 82728; 83540; 83550; 84443; 85025